=== PATIENT | male | born 1965 | race Caucasian/White ===

== ENCOUNTER 2023-03-06 14:24 | Outpatient (CLI) | payer BC, SELFPAY ==
--- NOTE | ~2023-03-06 | MR_ITS ---
EXAMINATION: MR cervical spine wo con DATE: 03/06/2023 14:57 INDICATION: Cervical radiculopathy. Right hand and arm numbness and tingling and weakness. TECHNIQUE: Magnetic resonance imaging (MRI) of the cervical spine was performed without intravenous c ontrast. COMPARISON: None FINDINGS: There is hypolordosis of cervical spine. Vertebral body heights are normal. There is modera tely decreased disc height at C5-C6 and C6-C7. The spinal cord signal intensity is normal. The follow ing disc levels are specifically discussed: C2-C3: The disc does not extend beyond the endplate margin. There is no uncovertebral joint osteoarth ritis. There is moderate right and severe left facet joint osteoarthritis. There is mild left neural foraminal stenosis. There is no central canal stenosis. C3-C4: The disc is bulging. There is moderate bilateral uncovertebral joint osteoarthritis. There is moderate right and mild left facet joint osteoarthritis. There is mild right neural foraminal stenosi s. There is mild central canal stenosis. C4-C5: There is a central extrusion. There is mild right uncovertebral joint osteoarthritis. There is mild right facet joint osteoarthritis. There is no neural foraminal stenosis. There is mild central canal stenosis with ventral indentation of the spinal cord. C5-C6: The disc is bulging. There is severe bilateral uncovertebral joint osteoarthritis. There is mi ld bilateral facet joint osteoarthritis. There is moderate bilateral neural foraminal stenosis. There is mild central canal stenosis. C6-C7: The disc is bulging. There is severe bilateral uncovertebral joint osteoarthritis. There is no facet joint osteoarthritis. There is moderate right and mild left neural foraminal stenosis. There i s mild central canal stenosis. C7-T1: The disc does not extend beyond the endplate margin. There is mild right uncovertebral joint o steoarthritis. There is severe bilateral facet joint osteoarthritis. There is mild right neural syd inal stenosis. There is no central canal stenosis. IMPRESSION: 1. Moderate cervical spondylosis. Reviewed, dictated and finalized at location A. SEAT FITTER MACHINE
== END 2023-03-06 14:25 ==
LOC: MICIMG 14:26
DX: M47.22 Other spondylosis with radiculopathy, cervical region (principal)
CPT/HCPCS: 72141

== ENCOUNTER 2024-10-08 12:38 | Inpatient (IN) | payer OTHER, SELFPAY ==
--- NOTE | ~2024-10-08 | XR_ITS ---
HISTORY: wound infection COMPARISON: None TECHNIQUE: 2 views of the right tibia and fibula were performed FINDINGS: No acute or subacute fracture. Medial tibiofemoral joint space narrowing is present, incompletely evaluated. Remaining joint spaces are preserved and alignment is maintained. Soft tissues are unremarkable without radiopaque foreign body or significant calcification. Age-appropriate mineralization. IMPRESSION: No acute fracture or dislocation within the right tibia and fibula, as detailed above. Reviewed, dictated and finalized at location A.
--- OUTSIDE RECORDS SUMMARY | 2024-10-08 12:41 | XMS_ITS | Clinical Summary ---
Author Organization [facility] [address] [address] Address [address] [place] [phone] Care Team Providers Care Singer Songwriter Name Role Phone Unknown, Notinfile Primary Care Provider Unavail able Allergies No known active allergies Medications metFORMIN XR (GLUCOPHAGE XR) 500 mg 24 hr tablet Take 2 tablets (1,000 mg total) by mouth 2 (two) times a day 5 Active losartan (COZAAR) 100 mg tablet Take 1 tablet (100 mg total) by mouth daily 5 Active metoprolol XL (TOPROL-XL) 25 mg extended release tablet Take 1 tablet (25 mg total) by mouth daily 5 Active rosuvastatin (CRESTOR) 10 mg tablet Take 1 tablet (10 mg total) by mouth daily 5 Active pioglitazone (ACTOS) 15 mg tablet Take 1 tablet (15 mg total) by mouth daily 5 Active semaglutide (RYBELSUS) 3 mg tablet Take 1 tablet (3 mg total) by mouth daily 5 Active mupirocin (BACTROBAN) 2 % ointmentIndicat ions:Local skin infection Apply topically 3 (three) times a day 22 g 5 Active sulfamethoxazol e-trimethoprim (Bactrim DS) 800-160 mg per tabletIndicatio ns:Local skin infection Take 1 tablet by mouth 2 (two) times a day for 10 days 20 tablet 5 10/15/19 25 Active Active Problems No known active problems Encounters Date Type Department Care Team Description 10/04/2024 3:30 PM CDT Office Visit [facility] Care at [address] [address] Daiana Ruiz NP Local skin infection (Primary Dx) 10/04/2024 2:25 PM CDT - 10/04/2024 11:59 PM CDT Hospital Encounter [address] [address] Local skin infection Discharge Disposition: Discharge to home or self care 10/04/2024 Telephone [facility] Care at [address] [address] Daiana Ruiz NP from Last 3 Months Social History Tobacco Use Types Packs/Day Years Used Date Smoking Tobacco: Never Assessed Sex and Gender Information Value Date Recorded Sex Assigned at Not on file Legal 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 Gender Identity Not on file Sexual Orientation Not on file Obstetrics History Last Filed Vital Signs Vital Sign Reading Time Taken Comments Blood Pressure 124/72 10/04/2024 2:00 PM CDT Pulse 103 10/04/2024 2:00 PM CDT Temperature 36.3 C (97.3 F) 10/04/2024 2:00 PM CDT Respiratory Rate 20 10/04/2024 2:00 PM CDT Oxygen Saturation 97% 10/04/2024 2:00 PM CDT Inhaled Oxygen Concentration - - Weight 113.4 kg (250 lb) 10/04/2024 2:00 PM CDT Height - - Body Mass Index - - Plan of Treatment Health Maintenance Due Date Last Done Comments Colon Cancer Screening-Colonoscopy 1965 Depression Screening 1965 Hepatitis C Screening 1965 Prostate Cancer Screening-PSA 1965 Hepatitis B Screening 09/19/1983 Regular Well Visit/Exam 18-64 09/19/1983 DTaP/Tdap/Td Vaccine (1 - Tdap) 10/14/2011 2 Zoster Vaccine (1 of 2) 09/19/2015 Influenza Vaccine (#1) 2024 01/15/2015 Pneumococcal vaccine <65 Aged Out 09/07/2012 No longer eligible based on patient's age to complete this topic Procedures Procedure Name Priority Date/Time Associated Diagnosis Comments AEROBIC AND ANAEROBIC CULTURE AND GRAM STAIN Routine 10/04/2024 2:25 PM CDT Local skin infection from Last 3 Months Insurance [facility] Care Teams Singer Songwriter Relationship Specialty Start Date End Date Unknown, Notinfile PCP - General 10/04/24
--- OUTSIDE RECORDS SUMMARY | 2024-10-08 12:41 | XMS_ITS | Encounter Summary ---
Author Organization [facility] Address [address] [place] [address] Care Team Providers Care Key Operator Name Role Phone Talita Cheung MD Primary Care Provider + [phone] Silke Scruggs APRN Primary Care Provider [phone]- [phone] Encounter Details Date Type Department Care Team ([facility] Contact Info) Description 10/18/2019 [facility] Message Enc [facility] Family & Internal Medicine [address] [address] [facility] Provider Lab results Social History Tobacco Use Types Packs/Day Years Used Date Smoking Tobacco: Never Smokeless Tobacco: Current Chew Alcohol Use Standard Drinks/Week Comments Yes 1.7 (1 standard drink = 0.6 oz p ure alcohol) Socially PHQ-2 Answer Date Recorded PHQ-2 Score 0 10/13/2019 Sex and Gender Information Value Date Recorded Sex Assigned at Male 03/23/2024 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 No / Unsure 10/13/2019 3:23 PM CDT documented as of this encounter Plan of Treatment Upcoming Encounters Date Type Department Care Team (Late Contact Info) Description 10/18/2024 4:20 PM CDT Office Visit [facility] Family & Internal Medicine [address] [address] Silke Scruggs APRN [id number] [place] [address] documented as of this encounter Visit Diagnoses Not on filedocumented in this encounter Care Teams Key Operator Relationship Specialty Start Date End Date Talita Cheung MD PCP - General INTERNAL MEDICINE 04/20/18 04/30/22 Silke Scruggs APRN [id number] [place] [address] PCP - General NURSE PRACTITIONER 05/01/22 documented as of this encounter
--- OUTSIDE RECORDS SUMMARY | 2024-10-08 12:41 | XMS_ITS | Encounter Summary ---
Author Organization [facility] Address [facility] [place] [address] Care Team Providers Care Car Scrubber Name Role Phone Talita Cheung MD Primary Care Provider + [phone] Silke Scruggs APRN Primary Care Provider + [phone] Encounter Details Date Type Department Care Team (Latest Contact Info) Description 01/13/[address] 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 Family & Internal Medicine [facility] [address] [place] [address] Silke Scruggs APRN [address] [facility] [address] [place] [address] documented as of this encounter Visit Diagnoses Not on filedocumented in this encounter Care Teams Car Scrubber Relationship Specialty Start Date End Date Talita Cheung MD PCP - General INTERNAL MEDICINE 04/20/18 04/30/22 Silke Scruggs APRN [id number] [place] [address] PCP - General NURSE PRACTITIONER 05/01/22 documented as of this encounter
--- OUTSIDE RECORDS SUMMARY | 2024-10-08 12:41 | XMS_ITS | Encounter Summary ---
Author Organization [facility] Address [address] [place] [address] Care Team Providers Care Fly Tier Name Role Phone Silke Scruggs APRN Primary Care Provider [phone]- [phone] Encounter Details Date Type Department Care Team (Late Contact Info) Description 04/29/2023 [employer] Message Enc [facility] Multispecialty Care - [address] [place] [address] [employer], [facility] Provider emg results Social History Tobacco Use Types Packs/Day Years Used Date Smoking Tobacco: Never Smokeless Tobacco: Current Chew Alcohol Use Standard Drinks/Week Comments Yes 1.7 (1 standard drink = 0.6 oz p ure alcohol) Socially AUDIT-C Answer Date Recorded Q1: How often do you have a drink containing alc ohol? Monthly or less 05/08/2020 Q2: How many drinks containi ng alcohol do you have on a typical day when you are drinking? 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 Not on file Not on file documented as of this encounter Plan of Treatment Upcoming Encounters Date Type Department Care Team (Late st Contact Info) Description 10/18/2024 4:20 PM CDT Office Visit [facility] Family & Internal Medicine - [place] [address] [place] [phone] Silke Scruggs APRN [id number] [facility] [address] [place] [address] documented as of this encounter Visit Diagnoses Not on filedocumented in this encounter Additional Health Concerns Assessment Noted Time PHQ-9 Depression Total Score: 0 04/24/19 23 3:43 PM FIELD APPLICATIONS SPECIALIST documented as of this encounter Care Teams Fly Tier Relationship Specialty Start Date End Date Silke Scruggs APRN [id number] [address] PCP - General NURSE PRACTITIONER 05/01/22 documented as of this encounter
--- OUTSIDE RECORDS SUMMARY | 2024-10-08 12:41 | XMS_ITS | Referral Summary ---
Author Organization [address] Address [address] [place] [address] Care Team Providers Care Value Analyst Name Role Phone Unknown, Notinfile Primary Care Provider Unavail able Encounters Date Type Department Care Team Description 10/04/2024 2:25 PM CDT - 10/04/2024 11:59 PM CDT Hospital Encounter [place] [phone] Local skin infection Discharge Disposition: Discharge to home or self care 10/04/[address] [facility] Convenient Care at [address] [address] Daiana Ruiz NP 10/04/2024 3:30 PM CDT Office Visit 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
--- OUTSIDE RECORDS SUMMARY | 2024-10-08 12:41 | XMS_ITS | Encounter Summary ---
Author Organization [facility] Address [address] [place] [address] Care Team Providers Care Scientific Specialist Name Role Phone Silke Scruggs APRN Primary Care Provider [phone]- [phone] Encounter Details Date Type Department Care Team (Late st Contact Info) Description 05/05/2023 [employer] Message Enc [facility] Family & Internal Medicine [address] [address] [place] Provider orthopedic/hand surgeon referral Social History Tobacco Use Types Packs/Day Years [...] Frequency of Binge Drinking Not on file 0303/2020 PHQ-2 Answer Date Recorded Patient Health Questionnaire-2 Score 0 04/07/2023 Sex and Gender Information Value Date Recorded Sex Assigned at Male 03/23/2024 10:02 AM STRAND AND BINDER CONTROLLER Legal Sex Male 7:49 PM CDT Gender Identity Not on file Sexual Orientation Not on file 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 Wish to be (Past 1 Month) No 05/05/2023 4:09 PM STRAND AND BINDER CONTROLLER Reba Bailey RN Activ e 2. Non-Specific Active Suicidal Thoughts (Past 1 Month) No 05/05/2023 4:09 PM STRAND AND BINDER CONTROLLER Reba Bailey RN Activ e 6. Suicidal Behavior (Lifetime) No 05/05/2023 4:09 PM STRAND AND BINDER CONTROLLER Reba Bailey RN Activ e documented as of this encounter Plan of Treatment Upcoming Encounters Date Type Department Care Team (Late st Contact Info) Description 10/18/2024 4:20 PM CDT Office Visit [facility] Family & Internal Medicine [facility] [address] [place] [phone] Silke Scruggs APRN [address] [phone] documented as of this encounter Visit Diagnoses Not on filedocumented in this encounter Additional Health Concerns Assessment Noted Time PHQ-9 Depression Total Score: 0 04/24/19 23 3:43 PM STRAND AND BINDER CONTROLLER documented as of this encounter Care Teams Scientific Specialist Relationship Specialty Start Date End Date Silke Scruggs APRN [id number] [address] PCP - General NURSE PRACTITIONER 05/01/22 documented as of this encounter
--- OUTSIDE RECORDS SUMMARY | 2024-10-08 12:42 | XMS_ITS | Clinical Summary ---
Author Organization [facility] Address [address] [place] [address] Care Team Providers Care Director Export Name Role Phone Silke Scruggs APRN Primary Care Provider [phone] Allergies No known active allergies Medications metoprolol succinate ER (TOPROL-XL) 25 MG 24 hr tabletIndications:E ssential hypertension Take 1 tablet (25 mg total) by mouth daily. 90 tablet 2 5 Active semaglutide (RYBELSUS) 3 MG tabletIndications:D iabetes Mellitus Take 1 tablet (3 mg total) by mouth every morning before breakfast. Indications: Diabetes Will increase med in 4 weeks 30 tablet 5 Active pioglitazone (ACTOS) 15 MG tabletIndications:T ype 2 diabetes mellitus without complication, without long-term current use of insulin ([facility]/HCC HHS/HCC) Take 1 tablet (15 mg total) by mouth daily. 90 tablet 3 5 Active losartan (COZAAR) 100 MG tabletIndications:E ssential hypertension Take 1 tablet (100 mg total) by mouth daily. 90 tablet 3 5 Active rosuvastatin (CRESTOR) 10 MG tabletIndications:M ixed hyperlipidemia Take 1 tablet (10 mg total) by mouth nightly at bedtime. 90 tablet 3 5 Active tadalafil (CIALIS) 10 MG tabletIndications:E rectile dysfunction, unspecified erectile dysfunction type Take 1 tablet (10 mg total) by mouth daily as needed for Erectile Dysfunction. 30 tablet 3 5 Active diclofenac EC (VOLTAREN) 75 MG tabletIndications:C hronic neck pain Take 1 tablet (75 mg total) by mouth 2 (two) times daily. 180 tablet 1 5 Active metFORMIN ER (GLUCOPHAGE-XR) 500 MG 24 hr tabletIndications:T ype 2 diabetes mellitus without complication, without long-term current use of insulin ([facility]) Take 2 tablets (1,000 mg total) by mouth 2 (two) times daily. 360 tablet 3 5 Active Active Problems Problem Noted Date Diagnosed Date Bilateral carpal tunnel syndrome 05/05/2023 Type 2 diabetes mellitus wit hout complication, without long-term current use of insulin ([facility]) 10/31/2022 Erectile dysfunction, unspecified erectile dysfu nction type 10/31/2022 Hyperlipidemia associated wi th type 2 diabetes mellitus ([facility]) 05/19/2018 Obstructive sleep apnea syndrome 10/18/2016 Hyperlipidemia 01/20/2013 Essential hypertension 01/20/2013 Controlled type 2 diabetes m ellitus without complication, without long-term current use of insulin ([facility]) 09/16/2012 Overview (04/20/2018): Impression - [id number] Talita Cheung: improved Resolved Problems Problem Noted Date Diagnosed Date Resolved Date BMI 35.0-35.9,adult 10/31/2015 05/13/19 21 Overview (04/20/2018): Transitioned From: BMI 37.0-37.9, adult Immunizations Immunization Administration Dates Next Due Fluzone 6 Months+ Quad (0.5 mL Prefilled Syringe) 04/14/2019(Deferred: Patient Refused) Influenza (Generic) 01/15/2015 Pneumococcal (Pneumovax 23) 09/07/2012 Td (Tenivac) preservative free 10/13/2011 Family History Medical History Relation Comments Thyroid Brother Thyroid Cancer Thyroid Disease Brother CABG Father Dementia Father Heart Disease Father Cancer Mother Heart Attack Mother Heart Disease Mother Relation Status Comments Brother Father Mother Social History Tobacco Use Types Packs/Day Years Used Date Smoking Tobacco: Never Smokeless Tobacco: Current Chew Tobacco Cessation:Ready to Q uit: No; Counseling Given: Yes Alcohol Use Standard Drinks/Week Comments Yes 1.7 [...] Answer Date Recorded Patient Health Questionnaire-2 Score 1 04/20/2024 Sex and Gender Information Value Date Recorded Sex Assigned at Male 03/23/2024 10:02 AM ENROLLMENT PROCESSOR Legal Sex Male 7:49 PM CDT Gender Identity Not on file Sexual Orientation Not on file 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 file Not on file Not on file Last Filed Vital Signs Vital Sign Reading Time Taken Comments Blood Pressure 147/85 04/20/2024 2:38 PM ENROLLMENT PROCESSOR Pulse 89 04/20/2024 2:38 PM ENROLLMENT PROCESSOR Temperature 36.1 C (96.9 F) 04/20/2024 2:38 PM ENROLLMENT PROCESSOR Respiratory Rate 20 04/20/2024 2:38 PM ENROLLMENT PROCESSOR Oxygen Saturation 96% 04/20/2024 2:38 PM ENROLLMENT PROCESSOR Inhaled Oxygen Concentration - - Weight 117.9 kg (260 lb) 04/20/2024 2:38 PM ENROLLMENT PROCESSOR Height 177.8 cm (5' 10) 04/20/2024 2:38 PM ENROLLMENT PROCESSOR Body Mass Index 37.31 04/20/2024 2:38 PM ENROLLMENT PROCESSOR Plan of Treatment Upcoming Encounters Date Type Department Care Team (Late st Contact Info) Description 10/18/2024 4:20 PM CDT Office Visit [facility] Family & Internal Medicine [facility] [address] [place] [address] Silke Scruggs, [place] [id number] [address] Health Maintenance Due Date Last Done Comments Kidney Health Evaluation 1965 Annual Physical 1968 DTaP, Tdap and Td Vaccines (1 - Tdap) 10/14/2011 10/13/2011 Pneumococcal Vaccine: 50+ Years (2 of 2 - PCV) 09/07/2013 09/07/2012 Diabetes: Retinopathy Eye Exam 07/14/2020 07/15/2019 Hemoglobin A1C 10/18/2024 04/20/2024, 08/0 11/2022, 04/24/2022, Additional history exists Lipid Panel 04/15/2025 04/15/2024, 08/0 11/2022, 04/24/2022, Additional history exists COVID-19 Vaccine (1 - 2023- season) 2025 Postponed from 11/09/2023 (Patient Refused) Hepatitis B Vaccines (1 of 3 - 19+ 3-dose series) 04/20/2025 Postponed from 1984 (Patient/Guardian Refusal) Zoster Vaccines (1 of 2) 04/20/2025 Pos tponed from 09/19/2015 (Going to Outside Clinic) Colorectal Cancer Screening Colonoscopy (10 Years) 11/27/2027 11/26/2017 Hepatitis C Completed 05/08/2020 PHQ-2 (Physician [place]) Completed 04/20/2024 Meningococcal B Vaccine Aged Out No l onger eligible based on patient's age to complete this topic Meningococcal Vaccine Aged Out No leda soila eligible based on patient's age to complete this topic RSV Immunizations Under 20 Months Aged Out No longer eligible based on patient's age to complete this topic Procedures Procedure Name Priority Date/Time Associated Diagnosis Comments HEMOGLOBIN, GLYCOSYLATED Routine 04/20/2024 Type 2 diabetes mellitus without complication, without long-term current use of insulin ([facility]) LIPID PANEL Routine 04/15/2024 7:17 AM ENROLLMENT PROCESSOR Mixed hyperlipidemia HEPATITIS C ANTIBODY W/RFX TO HCV RNA Routine 05/08/2020 6:21 AM ENROLLMENT PROCESSOR DILATED EYE EXAM (SCAN) Routine 07/15/2019 COLONOSCOPY Routine 11/26/2017 12:00 AM CDT from Last 3 Months or Most Recently Relevant to Health Maintenance Results * HEMOGLOBIN, GLYCOSYLATED (04/20/2024) HGB A1C 7.1 % [id number] Kaylynn DONAHUE CEDARBLUFF 04/20/2024 Silkebetsy Scruggs APRN LABORATORY Final Resu lt Performing Organization Address [facility] Co de Phone Number [phone] GENO DONAHUE CEDARBLUFF [address] [place] [address], * (ABNORMAL) LIPID PANEL (04/15/2024 7:17 AM ENROLLMENT PROCESSOR) Pathologist [facility] CHOLESTEROL 131 <200 mg/dL [facility] HDL 33(L) > OR = 40 mg/dL [facility] [employer] [facility] TRIGLYCERIDES 118 <150 mg/dL [facility] LDL (CALCULATED) 78 mg/dL (calc) [facility] Comment: Reference range: <100 Desirable range <100 mg/dL for primary prevention; <70 mg/dL for patients with CHD or diabetic patients with > or = 2 CHD risk factors. LDL-C is now calculated using the Isidoro-Yevgeniy calculation, which is a validated novel method providing better accuracy than the Friedewald equation in the estimation of LDL-C. Isidoro SS et al. KEDAR. 2013;310(19): 3406-6988 (http://education.ADP.[employer]/faq/XCN366) CHOL/HDL RATIO 4.0 <5.0 (calc) [facility] NON HDL CHOLESTEROL 98 <130 mg/dL (calc) [facility] Comment: For patients with diabetes plus 1 major ASCVD risk factor, treating to a non-HDL-C goal of <100 mg/dL (LDL-C of <70 mg/dL) is considered a therapeutic option. 04/15/2024 7:17 AM ENROLLMENT PROCESSOR 04/15/2024 7:17 AM ENROLLMENT PROCESSOR Narrative Resulting Agency Comment Performing Organization Information: Site ID: [id number] Name: [employer] Address: [address] [address] Director: Sally Cuellar MD Silke Scruggs APRN LABORATORY Final Resu lt [facility] [place] [facility] [address] [place] [address], * HEPATITIS C ANTIBODY W/RFX TO HCV RNA (05/08/2020 6:21 AM ENROLLMENT PROCESSOR) HEPATITIS C AB NON-REACTI VE NON-REACT DAISY [facility] SIGNAL TO CUTOFF 0.01 <[address] [facility] Comment: HCV antibody was non-reactive. There is no laboratory evidence of HCV infection. In most cases, no further action is required. However, if recent HCV exposure is suspected, a test for HCV RNA (test code 73343) is suggested. For additional information please refer to http://education.[employer]/faq/BDV42w1 (This link is being provided for informational/ educational purposes only.) 05/08/2020 6:21 AM ENROLLMENT PROCESSOR 05/08/2020 6:22 AM ENROLLMENT PROCESSOR Narrative [facility] [place] [facility] - 05/09/2020 10:20 AM ENROLLMENT PROCESSOR FASTING:YES FASTING: YES us Talita Cheung MD LABORATORY Final Result Performing Organization Address [facility] de Phone Number [facility] [place] [facility] [address] [place] [address] * DIABETIC RETINOPATHY EXAM (07/15/2019) us Documents Scanned SCANNING Final Result Performing Organization Address [facility] de Phone Number [facility] * Colonoscopy (11/26/2017 12:00 AM CDT) 11/26/2017 11/26/2017 Narrative [facility] TO EPIC CONVERSION - 11/26/2017 12:00 AM CDT Documented hx of procedure Procedure Note , Generic Conversion, - 01/11/2018 Documented hx of procedure us Generic Conversion Md [facility] GI PROCEDURE ORDERABLES Final Result Performing Organization Address [facility] de Phone Number [facility] TO EPIC CONVERSION from Last 3 Months or Most Recently Relevant to Health Maintenance Insurance [facility] Care Teams Director Export Relationship Specialty Start Date End Date Silke Scruggs APRN [address] [facility] [address] [place] [id number] PCP - General NURSE PRACTITIONER 05/01/22
--- OUTSIDE RECORDS SUMMARY | 2024-10-08 12:42 | XMS_ITS | Encounter Summary ---
Author Organization [facility] Address [facility] access [facility] [place] [address] Care Team Providers Care Assistant Merchandiser Name Role Phone Talita Cheung MD Primary Care Provider [phone] Silke Scruggs APRN Primary Care Provider + [phone] Encounter Details Date Type Department Care Team (Latest Contact Info) Description 02/17/2008 Abstract [facility] [place] [address] [place] [address] Social History Tobacco Use Types Packs/Day Years Used Date Smoking Tobacco: Never Assessed Sex and Gender Information Value Date Recorded Sex Assigned at Male 03/23/2024 10:02 AM RECHECKER Legal Sex Male 7:49 PM CDT Gender Identity Not on file Sexual Orientation Not on file documented as of this encounter Plan of Treatment Upcoming Encounters Date Type Department Care Team (Late st Contact Info) Description 10/18/2024 4:20 PM CDT Office Visit [facility] Family & Internal Medicine [facility] [address] [place] [address] Silke Scruggs APRN [id number] [address] documented as of this encounter Visit Diagnoses Not on filedocumented in this encounter Care Teams Assistant Merchandiser Relationship Specialty Start Date End Date Talita Cheung MD PCP - General INTERNAL MEDICINE 04/20/18 04/30/22 Silke Scruggs APRN [id number] [address] PCP - General NURSE PRACTITIONER 05/01/22 documented as of this encounter
[2024-10-08 12:45] VITALS: BP 149/91; PULSE 101; RESP 16; TEMP 36.8; O2SAT 97
[2024-10-08 12:55] VITALS: TEMP 36.8
--- NOTE | 2024-10-08 14:03 | ED_ITS ---
HPI - Wound/Laceration General Chief Complaint: Wound/Laceration Stated Complaint: wound Time Seen by Provider: 10/08/24 13:10 History of Present Illness HPI narrative: 59-year-old male presenting to the emergency department with infection of a wound to his right lower extremity. Patient states about 1 month ago he had a scrape to his right lower extremity after a metal pipe fell onto his leg during work. He thought nothing of it but started getting signs of infection next several days. He had some redness and swelling to the anterior right diaz where the injury was. Notices some purulent material was some serosanguineous drainage occasionally. Went to urgent care on Friday I prescribed mupirocin topically and Bactrim orally. Has been taking this for last 5 days without any improvement and his states that the symptoms are actually worse. No streaking redness up the extremity. No fever, chills or systemic symptoms. No pain with ambulation. States that he has some pain with palpation of the wound area. His tetanus is not up-to-date. Related Data Home Medications ?Medication ?Instructions ?Recorded ?Confirmed ?Last Taken ?Type losartan 100 mg tablet 100 mg PO DAILY 10/08/24 10/08/24 10/08/24 09:00 History 100 mg metformin 500 mg tablet,extended 1,000 mg PO BID 10/08/24 10/08/24 10/08/24 09:00 History release 24 hr 1,000 mg metoprolol succinate 25 mg 25 mg PO 1700 10/08/24 10/08/24 10/07/24 17:00 History tablet,extended release 24 hr 25 mg mupirocin 2 % topical ointment 1 applic topical QID 10/08/24 10/08/24 10/08/24 09:00 History pioglitazone 15 mg tablet 15 mg PO DAILY 10/08/24 10/08/24 10/08/24 09:00 History 15 mg rosuvastatin 10 mg tablet 10 mg PO DAILY 10/08/24 10/08/24 10/08/24 09:00 History 10 mg Allergies Allergy/AdvReac Type Severity Reaction Status Date / Time No Known Allergies Allergy Verified 10/08/24 13:21 Review of Systems 2 Review of Systems: As reviewed above in HPI [facility] Past Medical History Medical History HLD (hyperlipidemia) Hypertension Diabetes Social History Social History Smoking status: Never smoker Smokeless tobacco user: chewing tobacco Second hand tobacco smoke exposure: No Alcohol intake: current Drinks per week: 3 Substance use: never Lack of Transportation: No Lack of Food: Never True Current Housing: I Have Housing Concerned About Future Housing: No Difficulty Paying Gas/Electric Bills: No Difficulty Paying for Meds: No Currently Unemployed: No Education: High School Diploma/GED Difficulty w/ Childcare or Family Care: No Spiritual care concerns: No Exam 2 Narrative: GENERAL: [Well-appearing, well-nourished, and in no acute distress.] HEAD: [Normocephalic, atraumatic.] EYES: [PERRLA and EOMI.] ENT: Nares clear, no rhinorrhea or epistaxis. Mucous membranes moist. NECK: Supple. CHEST: [Clear to auscultation. No respiratory distress.] HEART: [Regular rate and rhythm]. No murmur heard. [Normal peripheral pulses.] ABDOMEN: [Soft, nondistended], [nontender], [No rigidity or guarding] EXTREMITIES: Normal range of motion. [No edema.] SKIN: Right lower extremity with a 4 cm wound that has some serosanguineous drainage and small amounts of purulent wound margin debris. Overlying redness that is not circumferential. No streaking redness. No lymphadenopathy in the right lower extremity. NEURO: [No focal deficits]. Alert and oriented [x3.] PSYCH: [Normal mood and affect.] Course Vital Signs Vital signs: Vital Signs Temperature 36.8 C 10/08/24 12:45 Pulse Rate 101 H 10/08/24 12:45 Respiratory Rate 16 10/08/24 12:45 Blood Pressure 149/91 H 10/08/24 12:45 Pulse Oximetry 97 10/08/24 12:45 Temperature 36.4 C L 10/08/24 16:31 Pulse Rate 81 10/08/24 16:31 Respiratory Rate 18 10/08/24 16:31 Blood Pressure 143/86 H 10/08/24 16:31 Pulse Oximetry 94 10/08/24 16:31 Oxygen Delivery Room Air 08/01/25 16:42 MDM - Wound/Laceration MDM Narrative Medical decision making narrative: 59-year-old male presenting to the emergency department with infection of a wound to his right lower extremity. Patient states about 1 month ago he had a scrape to his right lower extremity after a metal pipe fell onto his leg during work. He thought nothing of it but started getting signs of infection next several days. He had some redness and swelling to the anterior right diaz where the injury was. Notices some purulent material was some serosanguineous drainage occasionally. Went to urgent care on Friday I prescribed mupirocin topically and Bactrim orally. Has been taking this for last 5 days without any improvement and his states that the symptoms are actually worse. No streaking redness up the extremity. No fever, chills or systemic symptoms. No pain with ambulation. States that he has some pain with palpation of the wound area. His tetanus is not up-to-date. Right lower extremity with a 4 cm wound that has some serosanguineous drainage and small amounts of purulent wound margin debris. Overlying redness that is not circumferential. No streaking redness. No lymphadenopathy in the right lower extremity. Patient is afebrile, vital signs are reassuring. Given his failure of outpatient treatment course with Bactrim and mupirocin as well as worsening infection signs he will need IV antibiotics. Will obtain a tib-fib x- ray to make sure there is no signs of osteomyelitis, blood was obtained, he was started on vancomycin and given a tetanus update. Patient and family comfortable the plan for admission for IV antibiotic therapy. Laboratory studies are unremarkable aside from some minor elevations in inflammatory markers and elevated BS. X-ray without any acute findings of osteomyelitis. Patient on vancomycin therapy at this time and discussed the case with the hospitalist for admission for continued therapy. Observation admission order placed and family comfortable with the plan. Medical Records Attestation: I reviewed the patient's medical records. Lab Data Attestation: I reviewed the patient's lab results. 10/08/24 14:27 10/08/24 14: Labs: Lab Results 10/08/24 10/08/24 10/08/24 Range/Units 14:27 14:27 14:27 WBC 5.2 (4.5-10.0) K/mm3 RBC 4.80 (4.6-6.20) M/mm3 Hgb 14.6 (14.0-18.0) g/dL Hct 44.1 (42.0-52.0) % MCV 91.9 (80-100) fl MCH 30.4 (26-34) pg MCHC 33.1 (32-36) g/dl RDW 12.8 (11.5-14.5) % Plt Count 236 (150-375) k/mm3 MPV 10.4 (7.4-10.4) fl Immature Gran % (Auto) 0.4 (0-0.5) % Neut % (Auto) 65.6 (45.5-73.1) % Lymph % (Auto) 20.7 (18.3-44.2) % [place] % (Auto) 10.2 H (2.6-8.5) % Eos % (Auto) 2.1 (0-4.4) % Baso % (Auto) 1.0 (0.2-1.2) % Lymph # (Auto) 1.08 (0.9-3.2) K/mm3 [place] # (Auto) 0.5 (0.1-0.6) K/mm3 Eos # (Auto) 0.1 (0-0.3) K/mm3 Baso # (Auto) 0.1 (0.0-0.1) K/mm3 Abs Immat Gran (auto) 0.02 (0.00-0.031) K/mm3 Absolute Neuts (auto) 3.4 (1.3-6.7) K/mm3 Absolute Nucleated RBC 0.000 (0.0-0.012) K/mm3 Nucleated RBC % 0.0 (0.0-0.2) % ESR 21 H (0-20) mm/hr Sodium 134 L (137-145) mmol/L Potassium 4.4 (3.4-5.0) mmol/L Chloride 99 (98-107) mmol/L Carbon Dioxide 25 (22-30) mmol/L Anion Gap 10 (4-12) mmol/L BUN 13 (9-20) mg/dL Creatinine 0.73 0.73 (0.7-1.3) mg/dL Estim Creat Clear Calc 119 119 ml/min Estimated GFR > 60 (59 - ) Glucose (65-110) mg/dL Calcium (8.4-10.2) mg/dL Total Bilirubin (0.2-1.3) mg/dL AST (17-59) U/L ALT (6-50) U/L Alkaline Phosphatase (38-126) U/L C-Reactive Protein (<1.0) mg/dL Total Protein (6.3-8.2) g/dL Albumin (3.5-5.1) g/dL 10/08/24 Range/Units 14:27 WBC (4.5-10.0) K/mm3 RBC (4.6-6.20) M/mm3 Hgb (14.0-18.0) g/dL Hct (42.0-52.0) % MCV (80-100) fl MCH (26-34) pg MCHC (32-36) g/dl RDW (11.5-14.5) % Plt Count (150-375) k/mm3 MPV (7.4-10.4) fl Immature Gran % (Auto) (0-0.5) % Neut % (Auto) (45.5-73.1) % Lymph % (Auto) (18.3-44.2) % [place] % (Auto) (2.6-8.5) % Eos % (Auto) (0-4.4) % Baso % (Auto) (0.2-1.2) % Lymph # (Auto) (0.9-3.2) K/mm3 [place] # (Auto) (0.1-0.6) K/mm3 Eos # (Auto) (0-0.3) K/mm3 Baso # (Auto) (0.0-0.1) K/mm3 Abs Immat Gran (auto) (0.00-0.031) K/mm3 Absolute Neuts (auto) (1.3-6.7) K/mm3 Absolute Nucleated RBC (0.0-0.012) K/mm3 Nucleated RBC % (0.0-0.2) % ESR (0-20) mm/hr Sodium (137-145) mmol/L Potassium (3.4-5.0) mmol/L Chloride (98-107) mmol/L Carbon Dioxide (22-30) mmol/L Anion Gap (4-12) mmol/L BUN (9-20) mg/dL Creatinine (0.7-1.3) mg/dL Estim Creat Clear Calc ml/min Estimated GFR > 60 (59 - ) Glucose 217 H (65-110) mg/dL Calcium 9.7 (8.4-10.2) mg/dL Total Bilirubin 1.1 (0.2-1.3) mg/dL AST 27 (17-59) U/L ALT 25 (6-50) U/L Alkaline Phosphatase 120 (38-126) U/L C-Reactive Protein 1.7 H (<1.0) mg/dL Total Protein 7.8 (6.3-8.2) g/dL Albumin 4.3 (3.5-5.1) g/dL Imaging Data Attestation: I personally reviewed and interpreted this imaging study as follows: My impression: Impressions Tibia/Fibula X-Ray 10/08/24 14:18 IMPRESSION: No acute fracture or dislocation within the right tibia and fibula, as detailed above. Discharge Plan Discharge Clinical Impression: Cellulitis Wound of right lower extremity Qualifiers: Encounter type: subsequent encounter Qualified Code(s): S81.801D - Unspecified open wound, right lower leg, subsequent encounter Diabetes Qualifiers: Diabetes mellitus type: type 2 Diabetes mellitus remote computer terminal operator insulin use: without alf use Diabetes mellitus complication status: without complication Q ualified Code(s): E11.9 - Type 2 diabetes mellitus without complications Hypertension Qualifiers: Hypertension type: primary hypertension Qualified Code(s): I10 - Essential (primary) hypertension Patient Disposition: Still a Patient Condition: Stable
--- OUTSIDE RECORDS SUMMARY | 2024-10-08 14:26 | XMS_ITS | Clinical Summary ---
Author Organization [facility] Address [address] [place] [address] Care Team Providers Care Chief Hospital Administrator Name Role Phone Silke Scruggs APRN Primary Care Provider +1- [phone] Allergies No known active allergies Medications metoprolol [...] complication, without long-term current use of insulin ([facility]/HCC HHS/HCC) Take 1 tablet (15 mg total) [...] complication, without long-term current use of insulin ([facility]) Take 2 tablets (1,000 mg total) by mouth 2 (two) times daily. 360 tablet 3 5 Active Active Problems Problem Noted Date Diagnosed Date Bilateral carpal tunnel syndrome 05/05/2023 Type 2 diabetes mellitus wit hout complication, without long-term current use of insulin ([facility]) 10/31/2022 Erectile dysfunction, unspecified erectile dysfu nction type 10/31/2022 Hyperlipidemia associated wi th type 2 diabetes mellitus ([facility]) 05/19/2018 Obstructive sleep apnea syndrome 10/18/2016 Hyperlipidemia 01/20/2013 Essential hypertension 01/20/2013 Controlled type 2 diabetes m ellitus without complication, without long-term current use of insulin ([facility]) 09/16/2012 Overview (04/20/2018): Impression - [id number] Talita Cheung: improved Resolved Problems Problem Noted [...] Sex Assigned at Male 03/23/2024 10:02 AM SOFTWARE ENGINEERING ASSOCIATE MANAGER Legal Sex Male 7:49 PM CDT Gender Identity Not on file Sexual Orientation Not on file 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 Not on file Not on file Last Filed Vital Signs Vital Sign Reading Time Taken Comments Blood Pressure 147/85 04/20/2024 2:38 PM SOFTWARE ENGINEERING ASSOCIATE MANAGER Pulse 89 04/20/2024 2:38 PM SOFTWARE ENGINEERING ASSOCIATE MANAGER Temperature 36.1 C (96.9 F) 04/20/2024 2:38 PM SOFTWARE ENGINEERING ASSOCIATE MANAGER Respiratory Rate 20 04/20/2024 2:38 PM SOFTWARE ENGINEERING ASSOCIATE MANAGER Oxygen Saturation 96% 04/20/2024 2:38 PM SOFTWARE ENGINEERING ASSOCIATE MANAGER Inhaled Oxygen Concentration - - Weight 117.9 kg (260 lb) 04/20/2024 2:38 PM SOFTWARE ENGINEERING ASSOCIATE MANAGER Height 177.8 cm (5' 10) 04/20/2024 2:38 PM SOFTWARE ENGINEERING ASSOCIATE MANAGER Body Mass Index 37.31 04/20/2024 2:38 PM SOFTWARE ENGINEERING ASSOCIATE MANAGER Plan of Treatment Upcoming Encounters Date Type Department Care Team (Late st Contact Info) Description 10/18/2024 4:20 PM CDT Office Visit [facility] Medical Group Family & Internal Medicine [facility] [address] [place] [address] Silke Scruggs, [place]ER[place] [address] [address] Health Maintenance Due Date Last [...] 11/26/2017 Hepatitis C Completed 05/08/2020 PHQ-2 (Physician [place]) Completed 04/20/2024 Meningococcal B Vaccine Aged Out [...] complication, without long-term current use of insulin ([facility]) LIPID PANEL Routine 04/15/2024 7:17 AM SOFTWARE ENGINEERING ASSOCIATE MANAGER Mixed hyperlipidemia HEPATITIS C ANTIBODY W/RFX TO HCV RNA Routine 05/08/2020 6:21 AM SOFTWARE ENGINEERING ASSOCIATE MANAGER DILATED EYE EXAM (SCAN) Routine 07/15/2019 COLONOSCOPY Routine 11/26/2017 12:00 AM CDT from Last 3 Months or Most Recently Relevant to Health Maintenance Results * HEMOGLOBIN, GLYCOSYLATED (04/20/2024) HGB A1C 7.1 % [id number] Kaylynn [place] 04/20/2024 Silkebetsy Scruggs APRN LABORATORY Final Resu lt Performing Organization Address [facility] Co de Phone Number -[phone] [address] [place] [address] [place] [address], * (ABNORMAL) LIPID PANEL (04/15/2024 7:17 AM SOFTWARE ENGINEERING ASSOCIATE MANAGER) Pathologist [facility] CHOLESTEROL 131 <200 mg/dL [facility] HDL 33(L) > OR = 40 mg/dL [facility] [employer] [facility] TRIGLYCERIDES 118 <150 mg/dL [facility] LDL (CALCULATED) 78 mg/dL (calc) [facility] Comment: Reference range: <100 Desirable range <100 mg/dL for primary prevention; <70 mg/dL for patients with CHD or diabetic patients with > or = 2 CHD risk factors. LDL-C is now calculated using the Isidoro-Yevgeniy calculation, which is a validated novel method providing better accuracy than the Friedewald equation in the estimation of LDL-C. Isidoro SS et al. KEDAR. 2013;310(19): 1813-9984 (http://education.X-1.Synovex/faq/XYS323) CHOL/HDL RATIO 4.0 <5.0 (calc) [facility] NON HDL CHOLESTEROL 98 <130 mg/dL (calc) [facility] Comment: For patients with diabetes plus 1 major ASCVD risk factor, treating to a non-HDL-C goal of <100 mg/dL (LDL-C of <70 mg/dL) is considered a therapeutic option. 04/15/2024 7:17 AM SOFTWARE ENGINEERING ASSOCIATE MANAGER 04/15/2024 7:17 AM SOFTWARE ENGINEERING ASSOCIATE MANAGER Narrative Resulting Agency Comment Performing Organization Information: Site ID: [place] Name: [facility] Address: [address] [address] Director: Sally Cuellar MD Silke Scruggs APRN LABORATORY Final Resu lt [facility] [address] [place] [address], * HEPATITIS C ANTIBODY W/RFX TO HCV RNA (05/08/2020 6:21 AM SOFTWARE ENGINEERING ASSOCIATE MANAGER) HEPATITIS C AB NON-REACTI VE NON-REACT DAISY [facility] SIGNAL TO CUTOFF 0.[address] <[address] [facility] Comment: HCV antibody was non-reactive. There is no laboratory evidence of HCV infection. In most cases, no further action is required. However, if recent HCV exposure is suspected, a test for HCV RNA (test code 44891) is suggested. For additional information please refer to http://education.[employer]/faq/FBT45j0 (This link is being provided for informational/ educational purposes only.) 05/08/2020 6:21 AM SOFTWARE ENGINEERING ASSOCIATE MANAGER 05/08/2020 6:22 AM SOFTWARE ENGINEERING ASSOCIATE MANAGER Narrative [facility] - 05/09/2020 10:20 AM SOFTWARE ENGINEERING ASSOCIATE MANAGER FASTING:YES FASTING: YES us Talita Cheung MD LABORATORY Final Result Performing Organization Address [facility] de Phone Number [facility] [place] [address] [place] [address] * DIABETIC RETINOPATHY EXAM (07/15/2019) us Documents Scanned SCANNING Final Result Performing Organization Address [facility] de Phone Number [facility] * Colonoscopy (11/26/2017 12:00 AM CDT) 11/26/2017 11/26/2017 Narrative [facility] TO EPIC CONVERSION - 11/26/2017 12:00 AM CDT Documented hx of procedure Procedure Note , Generic Conversion, - 01/11/2018 Documented hx of procedure us Generic Conversion Md [facility] GI PROCEDURE ORDERABLES Final Result Performing Organization Address [facility] de Phone Number [facility] TO EPIC CONVERSION from Last 3 Months or Most Recently Relevant to Health Maintenance Insurance [facility] [place] [address] Care Teams Chief Hospital Administrator Relationship Specialty Start Date End Date Silke Scruggs APRN [address] [facility] [address] [place] [id number] PCP - General NURSE PRACTITIONER 05/01/22
--- OUTSIDE RECORDS SUMMARY | 2024-10-08 14:26 | XMS_ITS | Referral Summary ---
Author Organization [address] Address [address] [place] [address] Care Team Providers Care Gas Scrubber Operator Name Role Phone Unknown, Notinfile Primary Care Provider Unavail able Encounters Date Type Department Care Team Description 10/04/2024 2:25 PM CDT - 10/04/2024 11:59 PM CDT Hospital Encounter [place] [id number] Local skin infection Discharge Disposition: Discharge to home or self care 10/04/2024 Telephone [facility] Medical [facility] Convenient Care at [address] [address] Daiana Ruiz NP 10/04/2024 3:30 PM CDT Office Visit [facility] Convenient Care at [address] [address] Daiana Ruiz NP Local skin [...] on file Legal Sex Male 12:21 PM INDUSTRIAL RELATIONS 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
--- OUTSIDE RECORDS SUMMARY | 2024-10-08 14:26 | XMS_ITS | Encounter Summary ---
Author Organization [facility] Address [address] [place] [address] Care Team Providers Care Cigarette Vendor Name Role Phone Talita Cheung MD Primary Care Provider + [phone] Silke Scruggs APRN Primary Care Provider [phone]- [phone] Encounter Details Date Type Department Care Team ([facility] Contact Info) Description 10/18/2019 Tuan800 Message Enc [facility] Family & Internal Medicine [address] [address] [facility] Provider Lab results Social History Tobacco Use Types Packs/Day Years Used Date Smoking Tobacco: Never Smokeless Tobacco: Current Chew Alcohol Use Standard Drinks/Week Comments Yes 1.7 (1 standard drink = 0.6 oz p ure alcohol) Socially PHQ-2 Answer Date Recorded PHQ-2 Score 0 10/13/2019 Sex and Gender Information Value Date Recorded Sex Assigned at Male 03/23/2024 10:02 AM PUBLICATIONS MANAGER Legal Sex Male 7:49 PM CDT [...] Description 10/18/2024 4:20 PM CDT Office Visit [facility] Family & Internal Medicine [address] [address] Silke Scruggs APRN [address] [place] [address] documented as of this encounter Visit Diagnoses Not on filedocumented in this encounter Care Teams Cigarette Vendor Relationship Specialty Start Date End Date Talita Cheung MD PCP - General INTERNAL MEDICINE 04/20/18 04/30/22 Silke Scruggs APRN [address] [place] [address] PCP - General NURSE PRACTITIONER 05/01/22 documented as of this encounter
--- OUTSIDE RECORDS SUMMARY | 2024-10-08 14:26 | XMS_ITS | Encounter Summary ---
Author Organization [facility] Address [facility] [place] [address] Care Team Providers Care Business Continuity Consultant Name Role Phone Talita Cheung MD Primary Care Provider + [phone] Silke Scruggs APRN Primary Care Provider + [phone] Encounter Details Date Type Department Care Team (Latest Contact Info) Description 01/13/2018 Abstract [facility] Medical [facility] , Faheem Squires MD Social History Tobacco Use Types Packs/Day Years Used Date Smoking Tobacco: Never Assessed Sex and Gender Information Value Date Recorded Sex Assigned at Male 03/23/2024 10:02 AM FACILITY OPERATIONS MANAGER Legal Sex Male 7:49 PM CDT Gender Identity Not on file Sexual Orientation Not on file documented as of this encounter Plan of Treatment Upcoming Encounters Date Type Department Care Team (Late st Contact Info) Description 10/18/2024 4:20 PM CDT Office Visit [facility] Medical Group Family & Internal Medicine [facility] [address] [place] [address] Silke Scruggs APRN [address] [facility] [address] [place] [address] documented as of this encounter Visit Diagnoses Not on filedocumented in this encounter Care Teams Business Continuity Consultant Relationship Specialty Start Date End Date Talita Cheung MD PCP - General INTERNAL MEDICINE 04/20/18 04/30/22 Silke Scruggs APRN [address] [place] [address] PCP - General NURSE PRACTITIONER 05/01/22 documented as of this encounter
--- OUTSIDE RECORDS SUMMARY | 2024-10-08 14:26 | XMS_ITS | Encounter Summary ---
Author Organization [facility] Address [facility] [place] [address] Care Team Providers Care Electroplater Automatic Name Role Phone Talita Cheung MD Primary Care Provider [phone] Silke Scruggs APRN Primary Care Provider + [phone] Encounter Details Date Type Department Care Team (Latest Contact Info) Description 02/17/2008 Abstract [facility] [place] [address] [place] [address] Social History Tobacco Use Types Packs/Day Years Used Date Smoking Tobacco: Never Assessed Sex and Gender Information Value Date Recorded Sex Assigned at Male 03/23/2024 10:02 AM SEARCH ENGINE MARKETING SPECIALIST Legal Sex Male 7:49 PM CDT Gender Identity Not on file Sexual Orientation Not on file documented as of this encounter Plan of Treatment Upcoming Encounters Date Type Department Care Team (Late st Contact Info) Description 10/18/2024 4:20 PM CDT Office Visit [facility] Medical [facility] Family & Internal Medicine [facility] [address] [place] [address] Silke Scruggs APRN [address] [address] documented as of this encounter Visit Diagnoses Not on filedocumented in this encounter Care Teams Electroplater Automatic Relationship Specialty Start Date End Date Talita Cheung MD PCP - General INTERNAL MEDICINE 04/20/18 04/30/22 Silke Scruggs APRN [id number] [address] PCP - General NURSE PRACTITIONER 05/01/22 documented as of this encounter
--- OUTSIDE RECORDS SUMMARY | 2024-10-08 14:26 | XMS_ITS | Encounter Summary ---
Author Organization [facility] Address [address] [place] [address] Care Team Providers Care Site Administrator Name Role Phone Silke Scruggs APRN Primary Care Provider [phone]- [phone] Encounter Details Date Type Department Care Team (Late Contact Info) Description 04/29/2023 C2C Link Message Enc 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 Medical Group Family & Internal Medicine - [place] [address] [place] [phone] Silke Scruggs APRN [address] [facility] [address] [place] [address] documented as of this encounter Visit Diagnoses Not on filedocumented in this encounter Additional Health Concerns Assessment Noted Time PHQ-9 Depression Total Score: 0 04/24/19 23 3:43 PM EXCHANGE OPERATOR documented as of this encounter Care Teams Site Administrator Relationship Specialty Start Date End Date Silke Scruggs APRN [address] [address] PCP - General NURSE PRACTITIONER 05/01/22 documented as of this encounter
--- OUTSIDE RECORDS SUMMARY | 2024-10-08 14:26 | XMS_ITS | Clinical Summary ---
Author Organization [place] [address] [place] Address [address] [place] [address] Care Team Providers Care Painter Touch Up Name Role Phone Unknown, Notinfile Primary Care [...] Description 10/04/2024 3:30 PM CDT Office Visit [facility] Medical Group [facility] [place] Care at [address] [address] Daiana Ruiz NP Local skin infection (Primary Dx) 10/04/2024 2:25 PM CDT - 10/04/2024 11:59 PM CDT Hospital Encounter [address] [address] Local skin infection Discharge Disposition: Discharge to home or self care 10/04/2024 Telephone [facility] Medical Group Convenient Care at [address] [address] Daiana Ruiz NP from Last 3 Months Social History Tobacco Use Types Packs/Day Years Used Date Smoking Tobacco: Never Assessed Sex and Gender Information Value Date Recorded Sex Assigned at Not on file Legal Sex Male 12:21 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
--- OUTSIDE RECORDS SUMMARY | 2024-10-08 14:26 | XMS_ITS | Encounter Summary ---
Author Organization [facility] Address [address] [place] [address] Care Team Providers Care Warp Preparer Name Role Phone Silke Scruggs APRN Primary Care Provider +[phone]- [phone] Encounter Details Date Type Department Care Team (Late st Contact Info) Description 05/05/2023 Hype Innovation Message Enc [facility] Family & Internal Medicine [address] [address] [facility], [facility] Provider orthopedic/hand surgeon referral Social History Tobacco [...] Sex Assigned at Male 03/23/2024 10:02 AM BEAD WORKER SEWING Legal Sex Male 7:49 PM CDT Gender Identity Not on file Sexual Orientation Not on file 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 Wish to be (Past 1 Month) No 05/05/2023 4:09 PM BEAD WORKER SEWING Reba Bailey RN Activ e 2. Non-Specific Active Suicidal Thoughts (Past 1 Month) No 05/05/2023 4:09 PM BEAD WORKER SEWING Reba Bailey RN Activ e 6. Suicidal Behavior (Lifetime) No 05/05/2023 4:09 PM BEAD WORKER SEWING Reba Bailey RN Activ e documented as of this encounter Plan of Treatment Upcoming Encounters Date Type Department Care Team (Late st Contact Info) Description 10/18/2024 4:20 PM CDT [facility] Internal Medicine [facility] [address] [place] [phone] Silke Scruggs APRN [address] [phone] documented as of this encounter Visit Diagnoses Not on filedocumented in this encounter Additional Health Concerns Assessment Noted Time PHQ-9 Depression Total Score: 0 04/24/19 23 3:43 PM BEAD WORKER SEWING documented as of this encounter Care Teams Warp Preparer Relationship Specialty Start Date End Date Silke Scruggs APRN [address] [address] PCP - General NURSE PRACTITIONER 05/01/22 documented as of this encounter
[2024-10-08 14:39] LABS: Hematocrit 44.1 % (42.0-52.0); Hemoglobin 14.6 g/dL (14.0-18.0); Immature Granulocyte Percent A 0.4 % (0-0.5); Lymphocytes Absolute Auto 1.08 K/mm3 (0.9-3.2); Mean Corpuscular HGB Conc 33.1 g/dl (32-36); Mean Corpuscular Hemoglobin 30.4 pg (26-34); Mean Corpuscular Volume 91.9 fl (80-100); Nucleated Red Blood Cells Absolute Auto 0.000 K/mm3 (0.0-0.012); Nucleated Red Blood Cells Perc 0.0 % (0.0-0.2); Platelet Count Result 236 k/mm3 (150-375); Red Blood Count 4.80 M/mm3 (4.6-6.20); White Blood Count 5.2 K/mm3 (4.5-10.0)
[2024-10-08 14:55] LABS: Estimated CRCL calculation 119 ml/min; Estimated Glomerular Filt Rate > 60
[2024-10-08 14:59] LABS: Alanine Aminotransferase 25 U/L (6-50); Albumin Level 4.3 g/dL (3.5-5.1); Alkaline Phosphatase 120 U/L (38-126); Anion Gap 10 mmol/L (4-12); Aspartate Amino Transferase 27 U/L (17-59); Bilirubin,Total 1.1 mg/dL (0.2-1.3); Blood Urea Nitrogen 13 mg/dL (9-20); CRP 1.7 mg/dL (<1.0); Calcium 9.7 mg/dL (8.4-10.2); Carbon Dioxide 25 mmol/L (22-30); Chloride 99 mmol/L (98-107); Estimated CRCL calculation 119 ml/min; Estimated Glomerular Filt Rate > 60; Glucose 217 mg/dL (65-110); Potassium 4.4 mmol/L (3.4-5.0); Sodium 134 mmol/L (137-145); Total Protein 7.8 g/dL (6.3-8.2)
[2024-10-08] MEDS: TETANUS,DIPHTHERIA,AC PERTUSSIS ADULT (0.5 ML) BOOSTRIX IM (15:17)
--- NOTE | 2024-10-08 15:19 | PM.IMHP ---
H&P: HPI History of Present Illness Date/Time: 10/08/24 15:19 Chief Complaint: Leg Wound Narrative: 59 y/o M with PMH of DM, HTN, and HLD presents here with a wound to his right lower extremity. The patient presents here from home on 10/08 for further evaluation of a right lower extremity wound. He reports he initially developed the wound after his leg was scraped by a metal pipe at work in early September. He initially did not seek treatment. However he developed redness and tenderness to the area within the last two weeks. He was then seen and treated at a [facility] urgent care earlier this week and was prescribed Bactrim DS b.i.d. times 10 days and Mupriciron topically on 10/04. Despite compliance with these medications he reports his symptoms have worsened. Denies any streaking of redness to his lower extremity, fever, chills, body aches, nausea, vomiting, or diarrhea. Tetanus has since been updated in the emergency department on 10/08. Denies history of skin infections or MRSA. Initial VS at presentation: 98.2? F, HR 101, R 16, 149/91, and 97% on RA. ED workup showed: No leukocytosis, no anemia, sodium 134, creatinine 0.73 and GFR >60, glucose 217, CRP 1.7. Tib/fib XR showed no acute fracture or dislocation within the right tibia and fibula. Review of Systems Review of Systems: All systems reviewed & are unremarkable except as noted in HPI and below PMFSH Past Medical History Medical History HLD (hyperlipidemia) Hypertension Diabetes Social History Social History Smoking status: Never smoker Smokeless tobacco user: chewing tobacco Second hand tobacco smoke exposure: No Alcohol intake: current Drinks per week: 3 Substance use: never Lack of Transportation: No Lack of Food: Never True Current Housing: I Have Housing Concerned About Future Housing: No Difficulty Paying Gas/Electric Bills: No Difficulty Paying for Meds: No Currently Unemployed: No Education: High School Diploma/GED Difficulty w/ Childcare or Family Care: No Spiritual care concerns: No Meds Home Medications and Allergies Home Medications ?Medication ?Instructions ?Recorded ?Confirmed ?Type losartan 100 mg tablet 100 mg PO DAILY 10/08/24 10/08/24 History metformin 500 mg tablet,extended 1,000 mg PO BID 10/08/24 10/08/24 History release 24 hr metoprolol succinate 25 mg 25 mg PO 1700 10/08/24 10/08/24 History tablet,extended release 24 hr mupirocin 2 % topical ointment 1 applic topical QID 10/08/24 10/08/24 History pioglitazone 15 mg tablet 15 mg PO DAILY 10/08/24 10/08/24 History rosuvastatin 10 mg tablet 10 mg PO DAILY 10/08/24 10/08/24 History Allergies Allergy/AdvReac Type Severity Reaction Status Date / Time No Known Allergies Allergy Verified 10/08/24 13:21 Vital Signs Vital Signs - 24 hr 10/08/24 12:45 10/08/24 12:55 Temperature 98.2 F 98.2 F Pulse Rate 101 H Respiratory Rate 16 Blood Pressure 149/91 H Pulse Oximetry 97 Exam Const: General: comfortable and no acute distress Other: , male, nontoxic appearance HENMT: Face/Nose/Sinus: Normal nares present Mouth: Yes moist mucous membranes Eyes: General: appearance normal, both eyes and all related structures Sclera: sclerae normal Pupils: Equal, round and reactive pupils present EOM: EOMs intact bilaterally Resp: Effort & Inspection: normal respiratory effort Auscultation: clear to auscultation bilaterally Cardio: Rate: regular rate Rhythm: regular rhythm Other: S1-S2 present without murmur, rub, ectopy GI: Other: Abdomen soft, nondistended, nontender. Normoactive bowel sounds in all quadrants. Skin: General skin exam: no rashes or lesions noted Wounds: wounds noted Other: 3 cm healing laceration/split to anterior left diaz with yellow, thin drainage with surrounding erythema and tenderness. no purulence or streaking. Neuro: Speech: normal speech Motor exam (neuro): 5/5 motor strength present throughout Sensory Exam: normal sensation Other: A&O x4 Extrem: General: normal exam except as noted Psych: Mental Status: mental status grossly normal Affect: normal affect Other: Good insight and judgment, pleasant H&P: Results Labs Labs: Short CBC 10/08/24 Range/Units 14:27 WBC 5.2 (4.5-10.0) K/mm3 Hgb 14.6 (14.0-18.0) g/dL Hct 44.1 (42.0-52.0) % Plt Count 236 (150-375) k/mm3 BMP 10/08/24 10/08/24 14:27 14:27 Sodium 134 L Potassium 4.4 Chloride 99 Carbon Dioxide 25 BUN 13 Creatinine 0.73 0.73 Glucose 217 H Calcium 9.7 Liver Function 10/08/24 Range/Units 14:27 Total Bilirubin 1.1 (0.2-1.3) mg/dL AST 27 (17-59) U/L ALT 25 (6-50) U/L Alkaline Phosphatase 120 (38-126) U/L Albumin 4.3 (3.5-5.1) g/dL Assessment and Plan Assessment and plan (1) Wound of right lower extremity: Qualifiers: Encounter type: subsequent encounter Qualified Code(s): S81.801D - Unspecified open wound, right lower leg, subsequent encounter Code(s): S81.801A - Unspecified open wound, right lower leg, initial encounter Status: Acute Assessment and Plan: Initially developed a wound after he had a pipe fall on him at work early September. Initially did not seek care until he developed symptoms concerning for infection. Then seen at a local urgent care and prescribed Bactrim DS and Mupriciron on 10/04, despite compliance the wound has continued to worsened. Plan for admission for IV antibiotics as he has failed outpatient p.o. antibiotics. - tib/fib XR: No acute fracture or dislocation within the right tibia and fibula, as detailed above. - started on vancomycin on 10/08 - continue new mupirocin topically - analgesics p.r.n. - monitor white count - CRP mildly elevated upon admission - wound culture if obtainable - Tdap updated on 10/08 (2) Diabetes: Qualifiers: Diabetes mellitus complication status: without complication Diabetes mellitus type: type 2 Diabetes mellitus driver supervisor insulin use: without driver supervisor use Qualified Code(s): E11.9 - Type 2 diabetes mellitus without complications Code(s): E11.9 - Type 2 diabetes mellitus without complications Status: Chronic Assessment and Plan: - hypoglycemia protocol - POC blood glucose ACHS - home medication: continue Metformin and Actos - correct regimen ordered - high dose TIDWM, based off BMI - A1C not on file, ordered (3) Hypertension: Qualifiers: Hypertension type: primary hypertension Qualified Code(s): I10 - Essential (primary) hypertension Code(s): I10 - Essential (primary) hypertension Status: Chronic Assessment and Plan: - chronic, currently 149/91 - continue home medications: Losartan, metoprolol - monitor Plan Diet: Diabetic GI Prophylaxis: n/a DVT Prophylaxis: Lovenox SQ IV fluids: LR 150 mL/hour Lines/Tubes: Peripheral IV Code Status: full code Quality VTE Prophylaxis VTE prophylaxis: pharmacologic ordered Hospitalist MIPS Advance Care Plan I have confirmed that the patient's Advanced Care Plan is present, code status is documented, or surrogate decision maker is listed in patient medical record.: Yes Medication Reconciliation I have utilized all available resources to obtain, update and review the patients current medications (includes all prescriptions, OTC, herbals, cannabis, and nutritional supplements).: Yes
[2024-10-08 15:50] VITALS: BP 155/92; PULSE 77; TEMP 36.4; O2SAT 96
--- NOTE | 2024-10-08 16:11 | ADMGEN ---
This patient, Kacey Calloway, was admitted to Medical Room 345-. Patient/family oriented to hospital policies and general routines including ID bracelet, bed and alarms, visiting hours, pain management, procedures, bathroom and other care routines, personal items, smoking policy, room service/diet, and visiting hours. Information on how to activate the Rapid Response Team has been discussed. Patient/Family are encouraged to report perceived risks to care and to ask questions if they do not understand what they are told or what they should do.
[2024-10-08 16:13] VITALS: BMI 35.9
[2024-10-08] MEDS: LACTATED RINGERS 1,000 ML 150 ML IV CONT (16:17)
[2024-10-08] MEDS: VANCOMYCIN 1,500 MG/NS 500 ML 1,500 MG/500 ML BAG 250 MG IVPB (16:21)
[2024-10-08 16:31] VITALS: BP 143/86; PULSE 81; RESP 18; TEMP 36.4; O2SAT 94
[2024-10-08 21:05] VITALS: BP 124/65; PULSE 81; RESP 16; TEMP 36.6; O2SAT 98
--- NOTE | 2024-10-08 21:06 | PC.NURSE ---
Screen Printing Stencil Preparer entered room to find patients home med bottles at bedside. Patient stated he took three medications: metformin, metoprolol and rosuvastatin. Screen Printing Stencil Preparer educated patient on not using home medications and removed from bedside
[2024-10-08] MEDS: MUPIROCIN 2% OINT 22 GM TUBE 1 APPLIC TOPICAL (21:12)
[2024-10-09 04:34] VITALS: BP 132/68; PULSE 72; RESP 16; TEMP 36.6; O2SAT 94
[2024-10-09] MEDS: VANCOMYCIN 1,500 MG/NS 500 ML 1,500 MG/500 ML BAG 250 MG IVPB ×2 (04:37→17:11)
[2024-10-09 05:53] LABS: Hematocrit 40.9 % (42.0-52.0); Hemoglobin 13.7 g/dL (14.0-18.0); Immature Granulocyte Percent A 0.7 % (0-0.5); Lymphocytes Absolute Auto 1.22 K/mm3 (0.9-3.2); Mean Corpuscular HGB Conc 33.5 g/dl (32-36); Mean Corpuscular Hemoglobin 30.7 pg (26-34); Mean Corpuscular Volume 91.7 fl (80-100); Nucleated Red Blood Cells Absolute Auto 0.000 K/mm3 (0.0-0.012); Nucleated Red Blood Cells Perc 0.0 % (0.0-0.2); Platelet Count Result 189 k/mm3 (150-375); Red Blood Count 4.46 M/mm3 (4.6-6.20); White Blood Count 4.4 K/mm3 (4.5-10.0)
[2024-10-09 06:14] LABS: Anion Gap 7 mmol/L (4-12); Blood Urea Nitrogen 10 mg/dL (9-20); Calcium 9.0 mg/dL (8.4-10.2); Carbon Dioxide 24 mmol/L (22-30); Chloride 103 mmol/L (98-107); Estimated CRCL calculation 129 ml/min; Estimated Glomerular Filt Rate > 60; Glucose 200 mg/dL (65-110); Potassium 4.6 mmol/L (3.4-5.0); Sodium 134 mmol/L (137-145)
--- NOTE | 2024-10-09 08:00 | P.PNIM_ITS ---
Progress Note: A&P Assessment and Plan (1) Wound of right lower extremity: Qualifiers: Encounter type: subsequent encounter Qualified Code(s): S81.801D - Unspecified open wound, right lower leg, subsequent encounter Code(s): S81.801A - Unspecified open wound, right lower leg, initial encounter Status: Acute Assessment and Plan: Initially developed a wound after he had a pipe fall on him at work early September. Initially did not seek care until he developed symptoms concerning for infection. Then seen at a local urgent care and prescribed Bactrim DS and Mupriciron on 10/04, despite compliance the wound has continued to worsened. Plan for admission for IV antibiotics as he has failed outpatient p.o. antibiotics. * tib/fib XR: No acute fracture or dislocation within the right tibia and fibula, as detailed above. * started on vancomycin on 10/08 * continue new mupirocin topically * analgesics p.r.n. * monitor white count * CRP mildly elevated upon admission * Wound culture pending * Tdap updated on 10/08 * Continue IV Vanc - transition to oral abx before discharge (2) Diabetes: Qualifiers: Diabetes mellitus complication status: without complication Diabetes mellitus fpc insulin use: without fpc use Diabetes mellitus type: type 2 Qualified Code(s): E11.9 - Type 2 diabetes mellitus without complications Code(s): E11.9 - Type 2 diabetes mellitus without complications Status: Chronic Assessment and Plan: * hypoglycemia protocol * POC blood glucose ACHS * home medication: continue Metformin and Actos * correct regimen ordered - high dose TIDWM, based off BMI * A1C not on file, 7.4% (10/09/2024) (3) Hypertension: Qualifiers: Hypertension type: primary hypertension Qualified Code(s): I10 - Essential (primary) hypertension Code(s): I10 - Essential (primary) hypertension Status: Chronic Assessment and Plan: * chronic, currently 132/68 * continue home medications: Losartan, metoprolol * monitor Plan Diet: Diabetic GI Prophylaxis: n/a DVT Prophylaxis: Lovenox SQ IV fluids: LR 150 mL/hour Lines/Tubes: Peripheral IV Code Status: full code Subjective Date/time seen: 10/09/24 08:00 Interval history: 59 y/o M with PMH of DM, HTN, and HLD presents here with a wound to his right lower extremity. The patient presents here from home on 10/08 for further evaluation of a right lower extremity wound. He reports he initially developed the wound after his leg was scraped by a metal pipe at work in early September. 10/09/2024 Patient sitting comfortably in bed at time examination. Denies any chest pain, shortness of breath, nausea/vomiting or abdominal pain at this time. Wound appears open and draining on the anterior aspect of the right lower extremity. Erythema and tenderness to palpation in the surrounding tissue, but no necrosis noted. Started on vancomycin IV, will monitor edges of erythema and consult wound nurse. Review of Systems Review of Systems: All systems reviewed & are unremarkable except as noted in HPI and below Exam Narrative: 3 cm healing laceration/split to anterior left diaz with yellow, thin drainage with surrounding erythema and tenderness. no purulence or streaking. benign exam otherwise. Const: General: comfortable and no acute distress Other: , male, nontoxic appearance HENMT: Face/Nose/Sinus: Normal nares present Mouth: Yes moist mucous membranes Eyes: General: appearance normal, both eyes and all related structures Sclera: sclerae normal Pupils: Equal, round and reactive pupils present EOM: EOMs intact bilaterally Resp: Effort & Inspection: normal respiratory effort Auscultation: clear to auscultation bilaterally Cardio: Rate: regular rate Rhythm: regular rhythm Other: S1-S2 present without murmur, rub, ectopy GI: Other: Abdomen soft, nondistended, nontender. Normoactive bowel sounds in all quadrants. Skin: General skin exam: no rashes or lesions noted and wounds noted Wounds: wounds noted Other: 3 cm healing laceration/split to anterior left diaz with yellow, thin drainage with surrounding erythema and tenderness. no purulence or streaking. Neuro: Cranial nerves: Yes Equal, round and reactive pupils present Speech: normal speech Motor exam (neuro): 5/5 motor strength present throughout Sensory Exam: normal sensation Other: A&O x4 Extrem: General: normal exam except as noted Psych: Mental Status: mental status grossly normal Affect: normal affect Other: Good insight and judgment, pleasant Objective Data Vital Signs Vital Signs: Vital Signs - 24 hr 10/08/24 12:45 10/08/24 12:55 10/08/24 15:50 Temperature 98.2 F 98.2 F 97.5 F L Pulse Rate 101 H 77 Respiratory Rate 16 Blood Pressure 149/91 H 155/92 H Pulse Oximetry 97 96 Oxygen Delivery 10/08/24 16:31 10/08/24 16:42 10/08/24 21:05 Temperature 97.5 F L 97.9 F Pulse Rate 81 81 Respiratory Rate 18 16 Blood Pressure 143/86 H 124/65 Pulse Oximetry 94 98 Oxygen Delivery Room Air 10/09/24 04:34 Temperature 97.9 F Pulse Rate 72 Respiratory Rate 16 Blood Pressure 132/68 Pulse Oximetry 94 Oxygen Delivery Intake/Output Intake/Output: Intake & Output 10/06/24 10/07/24 10/08/24 10/09/24 23:59 23:59 23:59 23:59 Intake Total 250 250 Balance 250 250 Meds/Results Medications: Active Medications Generic Name Dose Route Start Last Admin Trade Name Freq PRN Reason Stop Dose Admin Acetaminophen 650 mg 10/08/24 15:18 Acetaminophen 325 Mg Tablet PO Q4H PRN Mild Pain (1-3) or Fever Hydrocodone Bitart/Acetaminophen 1 tab 10/08/24 15:28 Hydrocodone/Acetaminophen (*Crx) 5-325 Mg Tablet PO Q6H PRN Pain Rated 4-6 Dextrose 12.5 gm 10/08/24 15:28 Dextrose 50% 25 Gm/50 Ml Syringe IV PUSH PRN PRN Hypoglycemia Protocol Enoxaparin Sodium 40 mg 10/09/24 09:00 Enoxaparin 40 Mg/0.4 Ml Syringe SUB-Q DAILY MAYO Glucagon 1 mg 10/08/24 15:28 Glucagon For Inj 1 Mg Vial IM PRN PRN Hypoglycemia Protocol Glucose 15 gm 10/08/24 15:28 Glucose Oral Gel 15 Gm Of Glucse In 37.5 Gm Tube PO PRN PRN Hypoglycemia Protocol Vancomycin HCl 1,500 mg in 500 mls @ 250 mls/hr 10/09/24 04:00 10/09/24 04:37 Vancomycin 1,500 Mg/Ns 500 Ml IVPB 250 mls/hr Q12H MAYO Administration Dextrose 1,000 mls @ 100 mls/hr 10/08/24 15:28 Dextrose 5% 1,000 Ml IVPB PRN PRN Hypoglycemia Protocol Insulin Aspart 4 - 8 units 10/08/24 17:00 10/08/24 18:20 Insulin Aspart (*Bkc) 100 Units/Ml SUB-Q Not Given TIDWM [facility] Protocol Losartan Potassium 100 mg 10/09/24 09:00 Losartan Potassium 100 Mg Tablet PO DAILY [facility] Metformin HCl 1,000 mg 10/09/24 09:00 Metformin Hcl Xr 500 Mg Tab.Sr.24h PO BID [facility] Metoprolol Succinate 25 mg 10/08/24 20:05 10/08/24 21:06 Metoprolol Succinate Ext Rel 25 Mg Tabcr PO Not Given 1700 [facility] Mupirocin 1 applic 10/08/24 21:00 10/08/24 21:12 Mupirocin 2% Oint 22 Gm Tube TOPICAL 1 applic QID [facility] Administration Pioglitazone HCl 15 mg 10/09/24 09:00 Pioglitazone Hcl 15 Mg Tab PO DAILY [facility] Rosuvastatin Calcium 10 mg 10/09/24 09:00 Rosuvastatin 10 Mg Tablet PO DAILY [facility] Radiology Results: ITS Impressions Tibia/Fibula X-Ray 10/08/24 14:18 IMPRESSION: No acute fracture or dislocation within the right tibia and fibula, as detailed above. Labs Labs: Laboratory Results - last 24 hr 10/08/24 10/08/24 10/08/24 14:27 14:27 14:27 WBC 5.2 RBC 4.80 Hgb 14.6 Hct 44.1 MCV 91.9 MCH 30.4 MCHC 33.1 RDW 12.8 Plt Count 236 MPV 10.4 Immature Gran % (Auto) 0.4 Neut % (Auto) 65.6 Lymph % (Auto) 20.7 Rowan % (Auto) 10.2 H Eos % (Auto) 2.1 Baso % (Auto) 1.0 Lymph # (Auto) 1.08 Rowan # (Auto) 0.5 Eos # (Auto) 0.1 Baso # (Auto) 0.1 Abs Immat Gran (auto) 0.02 Absolute Neuts (auto) 3.4 Absolute Nucleated RBC 0.000 Nucleated RBC % 0.0 ESR 21 H Sodium 134 L Potassium 4.4 Chloride 99 Carbon Dioxide 25 Anion Gap 10 BUN 13 Creatinine 0.73 0.73 Estim Creat Clear Calc 119 119 Estimated GFR > 60 Glucose POC Capillary Glucose Calcium Total Bilirubin AST ALT Alkaline Phosphatase C-Reactive Protein Total Protein Albumin 10/08/24 10/08/24 10/08/24 14:27 17:30 21:09 WBC RBC Hgb Hct MCV MCH MCHC RDW Plt Count MPV Immature Gran % (Auto) Neut % (Auto) Lymph % (Auto) Rowan % (Auto) Eos % (Auto) Baso % (Auto) Lymph # (Auto) Rowan # (Auto) Eos # (Auto) Baso # (Auto) Abs Immat Gran (auto) Absolute Neuts (auto) Absolute Nucleated RBC Nucleated RBC % ESR Sodium Potassium Chloride Carbon Dioxide Anion Gap BUN Creatinine Estim Creat Clear Calc Estimated GFR > 60 Glucose 217 H POC Capillary Glucose 156 H 189 H Calcium 9.7 Total Bilirubin 1.1 AST 27 ALT 25 Alkaline Phosphatase 120 C-Reactive Protein 1.7 H Total Protein 7.8 Albumin 4.3 10/09/24 05:30 WBC 4.4 L RBC 4.46 L Hgb 13.7 L Hct 40.9 L MCV 91.7 MCH 30.7 MCHC 33.5 RDW 12.7 Plt Count 189 MPV 10.6 H Immature Gran % (Auto) 0.7 H Neut % (Auto) 56.9 Lymph % (Auto) 27.7 Rowan % (Auto) 11.3 H Eos % (Auto) 2.9 Baso % (Auto) 0.5 Lymph # (Auto) 1.22 Rowan # (Auto) 0.5 Eos # (Auto) 0.1 Baso # (Auto) 0.0 Abs Immat Gran (auto) 0.03 Absolute Neuts (auto) 2.5 Absolute Nucleated RBC 0.000 Nucleated RBC % 0.0 ESR Sodium 134 L Potassium 4.6 Chloride 103 Carbon Dioxide 24 Anion Gap 7 BUN 10 Creatinine 0.67 L Estim Creat Clear Calc 129 Estimated GFR > 60 Glucose 200 H POC Capillary Glucose Calcium 9.0 Total Bilirubin AST ALT Alkaline Phosphatase C-Reactive Protein Total Protein Albumin Quality VTE Prophylaxis VTE prophylaxis: pharmacologic ordered
[2024-10-09 08:36] LABS: Hemoglobin A1C 7.4 % (<5.7)
[2024-10-09] MEDS: ROSUVASTATIN 10 MG TABLET PO (08:43)
[2024-10-09] MEDS: PIOGLITAZONE HCL 15 MG TAB PO (08:43)
[2024-10-09] MEDS: LOSARTAN POTASSIUM 100 MG TABLET PO (08:43)
[2024-10-09] MEDS: metFORMIN HCL XR 500 MG TAB.SR.24H 1000 MG PO ×2 (08:44→17:19)
[2024-10-09] MEDS: ENOXAPARIN 40 MG/0.4 ML SYRINGE SUB-Q (08:44)
[2024-10-09] MEDS: MUPIROCIN 2% OINT 22 GM TUBE 1 APPLIC TOPICAL ×4 (08:45→20:34)
[2024-10-09 14:00] VITALS: BP 153/96; PULSE 99; RESP 18; TEMP 36.7; O2SAT 98
[2024-10-09 17:21] VITALS: PULSE 76
[2024-10-09] MEDS: METOPROLOL SUCCINATE EXT REL 25 MG TABCR PO (17:21)
--- NOTE | 2024-10-09 21:23 | PC.NURSE ---
pt blood sugar was 240 at HS check and refused any insulin or corrective measures despite education provided and encouragement. RN will continue to monitor for rest of shift
[2024-10-09 22:00] VITALS: BP 149/84; PULSE 88; RESP 18; TEMP 36.6; O2SAT 100
[2024-10-10 03:37] LABS: Estimated CRCL calculation 132 ml/min; Estimated Glomerular Filt Rate > 60
[2024-10-10] MEDS: VANCOMYCIN 1,500 MG/NS 500 ML 1,500 MG/500 ML BAG 250 MG IVPB (04:23)
[2024-10-10 06:00] VITALS: BP 134/69; PULSE 72; RESP 15; TEMP 36.9; O2SAT 97
--- NOTE | 2024-10-10 07:16 | P.PNIM_ITS ---
Progress Note: A&P Assessment and Plan (1) Wound of right lower extremity: Qualifiers: Encounter type: subsequent encounter Qualified Code(s): S81.801D - Unspecified open wound, right lower leg, subsequent encounter Code(s): S81.801A - Unspecified open wound, right lower leg, initial encounter Status: Acute Assessment and Plan: Initially developed a wound after he had a pipe fall on him at work early September. Initially did not seek care until he developed symptoms concerning for infection. Then seen at a local urgent care and prescribed Bactrim DS and Mupriciron on 10/04, despite compliance the wound has continued to worsened. Plan for admission for IV antibiotics as he has failed outpatient p.o. antibiotics. * tib/fib XR: No acute fracture or dislocation within the right tibia and fibula, as detailed above. * started on vancomycin on 10/08 * continue new mupirocin topically * analgesics p.r.n. 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: without middle or intermediate school principal use Diabetes mellitus type: type 2 Qualified Code(s): E11.9 - Type 2 diabetes mellitus without complications Code(s): E11.9 - Type 2 diabetes mellitus without complications Status: Chronic Assessment and Plan: * hypoglycemia protocol * POC blood glucose ACHS * home medication: continue Metformin and Actos * correct regimen ordered - high dose TIDWM, based off BMI * A1C not on file, 7.4% (10/09/2024) (3) Hypertension: Qualifiers: Hypertension type: primary hypertension Qualified Code(s): I10 - Essential (primary) hypertension Code(s): I10 - Essential (primary) hypertension Status: Chronic Assessment and Plan: * chronic, currently 132/68 * continue home medications: Losartan, metoprolol * monitor Plan Diet: Diabetic GI Prophylaxis: n/a DVT Prophylaxis: Lovenox SQ IV fluids: LR 150 mL/hour Lines/Tubes: Peripheral IV Code Status: full code Subjective Date/time seen: 10/10/24 07:16 Interval history: 59 y/o M with PMH of DM, HTN, and HLD presents here with a wound to his right lower extremity. The patient presents here from home on 10/08 for further evaluation of a right lower extremity wound. He reports he initially developed the wound after his leg was scraped by a metal pipe at work in early September. 10/10/2024 Patient sitting comfortably in bed at time examination. Denies any chest pain, shortness of breath, n/v or abd pain at this time. Remains afebrile without leukocytosis. Wound appears to be slightly improved sinced yesterday. Still draining. Wound care consulted - pending further recommendations. Likely can be d/c tomorrow if continues to improve clinically. Review of Systems Review of Systems: All systems reviewed & are unremarkable except as noted in HPI and below Exam Narrative: 3 cm healing laceration/split to anterior left diaz with yellow, thin drainage with surrounding erythema and tenderness. no purulence or streaking. benign exam otherwise. Const: General: comfortable and no acute distress Other: , male, nontoxic appearance HENMT: Face/Nose/Sinus: Normal nares present Mouth: Yes moist mucous membranes Eyes: General: appearance normal, both eyes and all related structures Sclera: sclerae normal Pupils: Equal, round and reactive pupils present EOM: EOMs intact bilaterally Resp: Effort & Inspection: normal respiratory effort Auscultation: clear to auscultation bilaterally Cardio: Rate: regular rate Rhythm: regular rhythm Other: S1-S2 present without murmur, rub, ectopy GI: Other: Abdomen soft, nondistended, nontender. Normoactive bowel sounds in all quadrants. Skin: General skin exam: no rashes or lesions noted and wounds noted Wounds: wounds noted Other: 3 cm healing laceration/split to anterior left diaz with yellow, thin drainage with surrounding erythema and tenderness. no purulence or streaking. Neuro: Cranial nerves: Yes Equal, round and reactive pupils present Speech: normal speech Motor exam (neuro): 5/5 motor strength present throughout Sensory Exam: normal sensation Other: A&O x4 Extrem: General: normal exam except as noted Psych: Mental Status: mental status grossly normal Affect: normal affect Other: Good insight and judgment, pleasant Objective Data Vital Signs Vital Signs: Vital Signs - 24 hr 10/09/24 08:45 10/09/24 14:00 10/09/24 17:21 Temperature 98.1 F Pulse Rate 99 76 Respiratory Rate 18 Blood Pressure 153/96 H Pulse Oximetry 98 Oxygen Delivery Room Air 10/09/24 20:30 10/09/24 22:00 10/10/24 06:00 Temperature 97.9 F 98.4 F Pulse Rate 88 72 Respiratory Rate 18 15 Blood Pressure 149/84 H 134/69 Pulse Oximetry 100 97 Oxygen Delivery Room Air Intake/Output Intake/Output: Intake & Output 10/07/24 10/08/24 10/09/24 10/10/24 23:59 23:59 23:59 23:59 Intake Total 250 3960 500 Balance 250 3960 500 Meds/Results Medications: Active Medications Generic Name Dose Route Start Last Admin Trade Name Freq PRN Reason Stop Dose Admin Acetaminophen 650 mg 10/08/24 15:18 Acetaminophen 325 Mg Tablet PO Q4H PRN Mild Pain (1-3) or Fever Hydrocodone Bitart/Acetaminophen 1 tab 10/08/24 15:28 Hydrocodone/Acetaminophen (*Crx) 5-325 Mg Tablet PO Q6H PRN Pain Rated 4-6 Dextrose 12.5 gm 10/08/24 15:28 Dextrose 50% 25 Gm/50 Ml Syringe IV PUSH PRN PRN Hypoglycemia Protocol Enoxaparin Sodium 40 mg 10/09/24 09:00 10/09/24 08:44 Enoxaparin 40 Mg/0.4 Ml Syringe SUB-Q 40 mg DAILY MAYO Administration Glucagon 1 mg 10/08/24 15:28 Glucagon For Inj 1 Mg Vial IM PRN PRN Hypoglycemia Protocol Glucose 15 gm 10/08/24 15:28 Glucose Oral Gel 15 Gm Of Glucse In 37.5 Gm Tube PO PRN PRN Hypoglycemia Protocol Dextrose 1,000 mls @ 100 mls/hr 10/08/24 15:28 Dextrose 5% 1,000 Ml IVPB PRN PRN Hypoglycemia Protocol Vancomycin HCl 1,500 mg in 500 mls @ 250 mls/hr 10/10/24 04:00 10/10/24 04:23 Vancomycin 1,500 Mg/Ns 500 Ml IVPB 250 mls/hr Q8H MAYO Administration Insulin Aspart 4 - 8 units 10/08/24 17:00 10/09/24 17:24 Insulin Aspart (*Bkc) 100 Units/Ml SUB-Q Not Given TIDWM MAYO Protocol Losartan Potassium 100 mg 10/09/24 09:00 10/09/24 08:43 Losartan Potassium 100 Mg Tablet PO 100 mg DAILY MAYO Administration Metformin HCl 1,000 mg 10/09/24 09:00 10/09/24 17:19 Metformin Hcl Xr 500 Mg Tab.Sr.24h PO 1,000 mg BID MAYO Administration Metoprolol Succinate 25 mg 10/08/24 20:05 10/09/24 17:21 Metoprolol Succinate Ext Rel 25 Mg Tabcr PO 25 mg 1700 MAYO Administration Mupirocin 1 applic 10/08/24 21:00 10/09/24 20:34 Mupirocin 2% Oint 22 Gm Tube TOPICAL 1 applic QID MAYO Administration Pioglitazone HCl 15 mg 10/09/24 09:00 10/09/24 08:43 Pioglitazone Hcl 15 Mg Tab PO 15 mg DAILY MAYO Administration Rosuvastatin Calcium 10 mg 10/09/24 09:00 10/09/24 08:43 Rosuvastatin 10 Mg Tablet PO 10 mg DAILY MAYO Administration Radiology Results: ITS Impressions Tibia/Fibula X-Ray 10/08/24 14:18 IMPRESSION: No acute fracture or dislocation within the right tibia and fibula, as detailed above. Labs Labs: Laboratory Results - last 24 hr 10/09/24 10/09/24 10/09/24 05:30 08:14 11:53 Creatinine Estim Creat Clear Calc Estimated GFR POC Capillary Glucose 192 H 215 H Hemoglobin A1c 7.4 H Vancomycin Trough 10/09/24 10/09/24 10/10/24 17:24 21:20 03:12 Creatinine 0.65 L Estim Creat Clear Calc 132 Estimated GFR > 60 POC Capillary Glucose 156 H 240 H Hemoglobin A1c Vancomycin Trough 6.9 L Quality VTE Prophylaxis VTE prophylaxis: pharmacologic ordered
[2024-10-10 07:38] LABS: Hematocrit 40.9 % (42.0-52.0); Hemoglobin 13.4 g/dL (14.0-18.0); Immature Granulocyte Percent A 0.3 % (0-0.5); Lymphocytes Absolute Auto 1.21 K/mm3 (0.9-3.2); Mean Corpuscular HGB Conc 32.8 g/dl (32-36); Mean Corpuscular Hemoglobin 30.4 pg (26-34); Mean Corpuscular Volume 92.7 fl (80-100); Nucleated Red Blood Cells Absolute Auto 0.000 K/mm3 (0.0-0.012); Nucleated Red Blood Cells Perc 0.0 % (0.0-0.2); Platelet Count Result 196 k/mm3 (150-375); Red Blood Count 4.41 M/mm3 (4.6-6.20); White Blood Count 3.8 K/mm3 (4.5-10.0)
[2024-10-10 07:45] LABS: Alanine Aminotransferase 21 U/L (6-50); Albumin Level 3.5 g/dL (3.5-5.1); Alkaline Phosphatase 101 U/L (38-126); Anion Gap 9 mmol/L (4-12); Aspartate Amino Transferase 23 U/L (17-59); Bilirubin,Total 0.6 mg/dL (0.2-1.3); Blood Urea Nitrogen 12 mg/dL (9-20); Calcium 9.1 mg/dL (8.4-10.2); Carbon Dioxide 21 mmol/L (22-30); Chloride 104 mmol/L (98-107); Glucose 222 mg/dL (65-110); Potassium 4.1 mmol/L (3.4-5.0); Sodium 134 mmol/L (137-145); Total Protein 6.5 g/dL (6.3-8.2)
[2024-10-10] MEDS: ENOXAPARIN 40 MG/0.4 ML SYRINGE SUB-Q (08:27)
[2024-10-10] MEDS: LOSARTAN POTASSIUM 100 MG TABLET PO (08:27)
[2024-10-10] MEDS: PIOGLITAZONE HCL 15 MG TAB PO (08:27)
[2024-10-10] MEDS: metFORMIN HCL XR 500 MG TAB.SR.24H 1000 MG PO (08:27)
[2024-10-10] MEDS: ROSUVASTATIN 10 MG TABLET PO (08:27)
[2024-10-10] MEDS: MUPIROCIN 2% OINT 22 GM TUBE 1 APPLIC TOPICAL (08:28)
--- NOTE | 2024-10-10 10:45 | P.DS_ITS ---
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 insulin use: without exterminator termite use Diabetes mellitus type: type 2 Qualified Code(s): E11.9 - Type 2 diabetes mellitus without complications Code(s): E11.9 - Type 2 diabetes mellitus without complications Status: Chronic (3) Hypertension: Qualifiers: Hypertension type: primary hypertension Qualified Code(s): I10 - Essential (primary) hypertension Code(s): I10 - Essential (primary) hypertension Status: Chronic DS: Summary Hospital Course Reason for hospitalization: Leg Wound Hospital Course: The patient presents here from home on 10/08 for further evaluation of a right lower extremity wound. He reports he initially developed the wound after his leg was scraped by a metal pipe at work in early September. He initially did not seek treatment. However he developed redness and tenderness to the area within the last two weeks. He was then seen and treated at a [facility] urgent care earlier this week and was prescribed Bactrim DS b.i.d. times 10 days and Mupriciron topically on 10/04. Despite compliance with these medications he reports his symptoms have worsened. Denies any streaking of redness to his lower extremity, fever, chills, body aches, nausea, vomiting, or diarrhea. Tetanus has since been updated in the emergency department on 10/08. Denies history of skin infections or MRSA. Initial VS at presentation: 98.2? F, HR 101, R 16, 149/91, and 97% on RA. ED workup showed: No leukocytosis, no anemia, sodium 134, creatinine 0.73 and GFR >60, glucose 217, CRP 1.7. Tib/fib XR showed no acute fracture or dislocation within the right tibia and fibula. Upon exam, wound appears open and draining on the anterior aspect of the right lower extremity. Erythema and tenderness to palpation in the surrounding tissue, but no necrosis noted. Started on vancomycin IV, edges of erythema monitored.As wound care is not here on weekends, nursing staff managed wound. On 10/10, wound appeared to be healing appropriately on IV vanc. Pt expressed great desire to be discharge, and as he is able to intake PO medications, does not have a fever or elevated WBC, he can be safely discharged at this time. He will be given a prescription of Augmentin and Doxycycline to take for 7 additional days and instructed to follow up with his PCP in the outpt setting. Pt amenable to this plan - plan for discharge home at this time. Status at Discharge Functional status at discharge: independent ambulation Overall status at discharge: patient is back to baseline Time Spent with Patient Time attestation: Total time spent providing and/or coordinating discharge services: 51 Exam Narrative: 3 cm healing laceration/split to anterior left diaz with yellow, thin drainage with surrounding erythema and tenderness. no purulence or streaking. benign exam otherwise. Const: Other: , male, nontoxic appearance Cardio: Other: S1-S2 present without murmur, rub, ectopy GI: Other: Abdomen soft, nondistended, nontender. Normoactive bowel sounds in all quadrants. Skin: Other: 3 cm healing laceration/split to anterior left diaz with yellow, thin drainage with surrounding erythema and tenderness. no purulence or streaking. Neuro: Other: A&O x4 Psych: Other: Good insight and judgment, pleasant DS: Data Data Completed and Pending Labs on day of discharge: Labs from last 24 hours 10/10/24 10/10/24 10/10/24 08:45 03:12 03:11 WBC 3.8 L RBC 4.41 L Hgb 13.4 L Hct 40.9 L MCV 92.7 MCH 30.4 MCHC 32.8 RDW 12.5 Plt Count 196 MPV 11.1 H Immature Gran % (Auto) 0.3 Neut % (Auto) 54.3 Lymph % (Auto) 31.6 [place] % (Auto) 10.4 H Eos % (Auto) 2.6 Baso % (Auto) 0.8 Lymph # (Auto) 1.21 [place] # (Auto) 0.4 Eos # (Auto) 0.1 Baso # (Auto) 0.0 Abs Immat Gran (auto) 0.01 Absolute Neuts (auto) 2.1 Absolute Nucleated RBC 0.000 Nucleated RBC % 0.0 Sodium 134 L Potassium 4.1 Chloride 104 Carbon Dioxide 21 L Anion Gap 9 BUN 12 Creatinine 0.65 L Estim Creat Clear Calc 132 Estimated GFR > 60 Glucose 222 H POC Capillary Glucose 186 H Calcium 9.1 Total Bilirubin 0.6 AST 23 ALT 21 Alkaline Phosphatase 101 Total Protein 6.5 Albumin 3.5 Vancomycin Trough 6.9 L 10/09/24 10/09/24 10/09/24 21:20 17:24 11:53 WBC RBC Hgb Hct MCV MCH MCHC RDW Plt Count MPV Immature Gran % (Auto) Neut % (Auto) Lymph % (Auto) [place] % (Auto) Eos % (Auto) Baso % (Auto) Lymph # (Auto) [place] # (Auto) Eos # (Auto) Baso # (Auto) Abs Immat Gran (auto) Absolute Neuts (auto) Absolute Nucleated RBC Nucleated RBC % Sodium Potassium Chloride Carbon Dioxide Anion Gap BUN Creatinine Estim Creat Clear Calc Estimated GFR Glucose POC Capillary Glucose 240 H 156 H 215 H Calcium Total Bilirubin AST ALT Alkaline Phosphatase Total Protein Albumin Vancomycin Trough Discharge Plan Discharge Attending physician on discharge: Sigifredo Junior Consulting providers: Zurdo Mccloud Discharging Clinician: Zurdo Mccloud Anticipated Discharge Date/Time: 10/10/24 10:42 Patient Disposition: Home Activity: no straining and as tolerated Diet: heart healthy Discharge Instructions: Discharge disposition: Home Take medications as prescribed. You will be prescribed Augmentin and Doxycycline for antibiotic coverage of your lower extremity cellulitis. Take both of these medications for the entire course even if you start to feel better. Monitor blood pressures Take caution while standing, rising, or moving Change positions slowly taking a break between each position change If you standing feel dizzy sit back down and take a break Encouraged to continue with yearly vaccinations Return to the emergency department if he developed sudden shortness of breath, chest pain, nausea, vomiting, upset stomach or intractable diarrhea Return to the emergency department if you develop fever greater than 101.5 Follow-up with the primary care physician within 1-2 weeks Thank you for [facility] for your healthcare needs Patient Instructions: Antibiotic Form Patient Language: Armenian Stand Alone Forms: General Discharge Information Follow-up/Referrals: Sheba,Silke Ellis APRN [Primary Care Provider] - Discharge Medications: New amoxicillin-pot clavulanate 875-125 mg tablet 1 tablet PO Q12H 7 Days Qty: 14 0RF doxycycline hyclate 100 mg capsule 100 mg PO BID 7 Days Qty: 14 0RF Continued pioglitazone 15 mg tablet 15 mg PO DAILY mupirocin 2 % ointment 1 applic TOPICAL QID metoprolol succinate 25 mg tablet extended release 24 hr 25 mg PO 1700 losartan 100 mg tablet 100 mg PO DAILY metformin 500 mg tablet extended release 24 hr 1,000 mg PO BID rosuvastatin 10 mg tablet 10 mg PO DAILY Date of admission: 10/09/24 15:37 Primary Care Provider: Sheba,Silke Ellis Admitting Provider: Brittney Tse Attending physician on admission: Brittney Tse Condition: Stable Quality VTE Prophylaxis VTE prophylaxis: pharmacologic ordered
--- NOTE | 2024-10-15 10:23 | PC.NURSE ---
Wound cx growing Staph Aureus. DC on Amox-pot Clavulanic which is susceptible. Jojo Mccloud notified of findings.
== END 2024-10-10 13:15 | disposition home or self-care (01) | DRG 950 ==
LOC: ANHED 14:31 → ANH3MED 15:53
PROVIDERS: Student in an Organized Health Care Education/Training Program; Admitting Provider Hospitalist; Emergency Provider Student in an Organized Health Care Education/Training Program; PCP Registered Nurse; Visit Provider Physician Assistant
DX: S81.812D Laceration without foreign body, left lower leg, subsequent encounter (principal); W26.8XXD Contact with other sharp object(s), not elsewhere classified, subsequent encounter; E11.9 Type 2 diabetes mellitus without complications; I10 Essential (primary) hypertension; E78.5 Hyperlipidemia, unspecified; Z79.84 Long term (current) use of oral hypoglycemic drugs
CPT/HCPCS: 36415; 73590; 80048; 80053; 80202; 82565; 82948; 83036; 85025; 85652; 86140; 87070; 87075; 90471; 90715; 96361; 96365; 96375; 99285; A9270; G0378; J1650; J1815; J3373; J7120